=== PATIENT | male | born 1955 | race Caucasian/White ===

== ENCOUNTER 2023-09-03 09:02 | Outpatient (CLI) | payer MEDICARE, SELFPAY ==
--- NOTE | 2023-09-03 09:13 | ECG_ITS ---
APPROVED REPORT Exam: Resting ECG HR:75 bpm ECG Measurements Heart Rate 75 AXES LA 166 P 31 QRSd 102 QRS 11 QT 371 T 66 QTc 399 Conclusion SINUS RHYTHM NORMAL ECG UNCONFIRMED REPORT Electronically signed by : Chris Kebede MD 09/03/2023 20:58:29
[2023-09-03 09:18] LABS: Microscopic, Urine URINE MICROSCOPIC (MICROSCOPIC)
[2023-09-03 09:34] LABS: Basophils # 0.1 K/mm3 (0-0.2); Basophils % 1.1 % (0.1-2.0); Eosinophils # 0.1 K/mm3 (0.0-0.4); Eosinophils % 2.7 % (0.1-12.0); Hematocrit 45.1 % (42.0-52.0); Hemoglobin 14.9 g/dL (14.1-18.0); Lymphocytes # 1.3 K/mm3 (0.7-4.5); Lymphocytes % 29.7 % (10-50); Mean Corpuscular HGB Conc 33.1 g/dL (31.8-35.4); Mean Corpuscular Hemoglobin 33.8 pg (27.0-31.2); Mean Corpuscular Volume 102.1 fl (80-94); Mean Platelet Volume 8.6 fl (7.4-10.4); Monocytes # 0.3 K/mm3 (0.1-1.0); Monocytes % 7.3 % (1.7-9.3); Neutrophils # 2.5 K/mm3 (1.8-7.8); Neutrophils % 59.3 % (37.0-80.0); Platelet Count 204 K/mm3 (142-424); Red Blood Count 4.42 M/mm3 (4.60-6.20); Red Cell Distribution Width 12.3 % (11.5-17.5); White Blood Count 4.2 K/mm3 (4.8-10.8)
[2023-09-03 09:35] LABS: Appearance,Urine CLEAR (Clear); Bilirubin,Urine Negative (Negative); Blood, Urine Negative (Negative); Color,Urine YELLOW (Yellow); Glucose,Urine (UA) Negative (Negative); Ketones,Urine TRACE (Negative); Leukocyte Esterase,Urine Negative (Negative); Nitrate,Urine Negative (Negative); Protein,Urine Negative (Negative); Specific Gravity, Urine 1.015 (1.005-1.030); Urobilinogen,Urine 0.2 EU/dl (0.2)
[2023-09-03 10:15] LABS: Anion Gap 13.5 mEq/L (5-15); Blood Urea Nitrogen 7 mg/dl (9-20); Calcium 9.8 mg/dl (8.4-10.2); Carbon Dioxide 28 mmol/L (22.0-30.0); Chloride 94 mmol/L (98-107); Estimated Glomerular Filt Rate 96 ml/min (>60); GFR (African American) 116 ML/MIN (>60); Glucose 133 mg/dl (74-100); Potassium 4.5 mmoL/L (3.5-5.1); Sodium 131 mmol/L (136-145)
[2023-09-03 10:21] LABS: Bacteria,Urine Trace /lpf; RBC,Urine Occasional #/hpf (0-3); WBC,Urine Occasional #/hpf (0-3)
== END 2023-09-03 23:59 ==
LOC: LAB 09:03
PROVIDERS: PCP Family Medicine; Visit Provider Surgery
DX: K40.90 Unilateral inguinal hernia, without obstruction or gangrene, not specified as recurrent (principal); Z01.818 Encounter for other preprocedural examination
CPT/HCPCS: 36415; 80048; 81001; 85025; 93005

== ENCOUNTER 2023-09-11 06:01 | Day surgery (SDC) | payer MEDICARE, SELFPAY ==
[2023-09-09 17:02] VITALS: BMI 25.0
[2023-09-11] VITALS (10 sets, daily range): BP systolic 130–160; BP diastolic 70–98; PULSE 81–98; RESP 15–18; TEMP 36.6–43; O2SAT 93–100
[2023-09-11] MEDS: LACTATED RINGERS 1000ML 1,000 ML 25 ML IV (06:37)
--- NOTE | 2023-09-11 06:57 | P.PNANES_ITS ---
[facility] Disclaimer: The information contained in this section may have been updated after the patient was seen, as this information can be updated by other users. Medical History Neoplasm of skin of neck Insomnia Hypertension Hemangioma of neck No significant medical problems Surgical History H/O hernia repair Family History Other No significant family history Social History (Updated 09/11/23 @ 06:28 by Janet Barboza RN) Smoking Status: Never smoker alcohol intake: current substance use type: denies use current occupational status: retired Travel in the last 8 weeks: None [facility] Anesthesia Checklist Patient Identification Patient Identification: Arm Band and Family Structural Data Admitted From: Home Planned Operative Procedure/s: Right Inguinal Hernia Repair Consent for Planned Operative Procedure(s) Verified: Yes Verified Documents: Surgical Consent and History and Physical NPO Status Verified Time NPO: 00:00 Additional verifications Patient : No Anesthesia Reactions: No Hx Blood Transfusions: No Blood Transfusion Reaction: No Cephalosporin Allergy: No Previous Colonoscopy: No Airway Assessment Mallampati Score:: Class II C-Spine Mobility Assessed: Yes TMJ Mobility Assessed: Yes Dentition: Good Dentition Neurological Assessment Level of Consciousness: Awake, Alert, Appropriate and Follows Commands Hx Seizures: No Numbness or tingling in extremities: No Anesthesia Plan Anesthesia Risk discussed: Yes ASA Class: II Anesthesia Type: General Preoperative Comments Pre-Operative Comments: Hypertension, on Lisinopril.
[2023-09-11] MEDS: LIDOCAINE 1% 20ML MDV 20 ML (07:39)
[2023-09-11] MEDS: CEFAZOLIN SODIUM 1 GM in 0.9 % SODIUM CHLORIDE 50 ML IV (07:39)
--- NOTE | 2023-09-11 08:58 | P.OP_ITS ---
Date of procedure: 09/11/23 Pre-op Diagnosis:: Recurrent right inguinal hernia Post-op Diagnosis:: Same Procedure performed:: Open repair of recurrent right inguinal hernia Surgeon:: Ever Espino MD METAL [employer]ICATING INSPECTOR:: Juan Pablo Daigle Anesthesia: GETA Estimated blood loss (mL): 15 Clinical Note:: Patient status post prior right inguinal hernia repair approximately 40 years ago without utilization of mesh. After discussion with the patient concerning the risks and benefits of laparoscopic repair and the risks and benefits of open repair, the patient chose to undergo open repair. Operative findings:: Large indirect defect Significant scarring status post prior repair Operative note:: After informed consent was obtained the patient was taken to the operating room and placed in the supine position. General anesthesia was induced and his lower abdomen and groin/scrotum were prepped and draped in a sterile fashion. After infiltration with local anesthetic an oblique incision was made along the right groin (along prior incision). A combination of blunt dissection, sharp dissection, and electrocautery was utilized to transect through Maya's fascia to the level of the external aponeurosis. Profound scarring along the inferior margin noted. The external aponeurosis was opened sharply to the level of the external ring. The contents of the canal were carefully elevated. There was significant scarring/tissue thickening throughout the canal. An indirect defect was noted. The preperitoneal fat within the defect was carefully elevated. The vas and vasculature were carefully and protected. The preperitoneal fat was carefully returned to the abdominal cavity. An extra-large PerFix plug was secured in position with interrupted Ethibond. The PerFix overlay was secured to the fascial margin superiorly and shelving edge/thickened scar tissue inferiorly with interrupted Ethibond. The external aponeurosis was reapproximated with running 2-0 Vicryl. Maya's fascia was closed in the same manner. Skin was then closed with 3-0 Monocryl STRATAFIX. Dressings were applied and the patient was transferred to recovery in stable condition after extubation. Condition: stable Disposition: PACU Specimens:: none Complications:: No immediate
--- NOTE | 2023-09-11 09:05 | P.PNANES_ITS ---
[facility] Anesthesia Record Part I Anesthesia Record I Intake, IV Amount: 1,400 Hydration: Adequate Estimated blood loss (mL): 10 Urine output (mL): 0 Blood Products used (#): none Blood Pressure: 152/98 SaO2: 94 Pulse Rate: 98 Airway Patency: Patent Respiratory Rate: 16 Temperature: 98.5 F Patient is:: Drowsy and Stable Stable to PACU at:: 08:55
[2023-09-11 09:06] LABS: Microscopic,Cath URINE MICROSCOPIC (MICROSCOPIC)
[2023-09-11 09:24] LABS: Appearance,Urine/Cath CLEAR (Clear); Bilirubin,Cath Negative (Negative); Blood, Urine/Cath Negative (Negative); Color,Urine/Cath YELLOW (Yellow); Glucose,Urine/Cath (UA) Negative (Negative); Ketones,Urine/Cath TRACE (Negative); Leukocyte Esterase,Cath Negative (Negative); Nitrate,Cath Negative (Negative); Protein,Urine/Cath Negative (Negative); Urobilinogen,Cath 0.2 EU/dl (0.2)
--- NOTE | 2023-09-11 10:00 | EXP.ANES.II ---
[facility] Anesthesia Record Part II Anesthesia Record Part II Discharge Time: 09:25 Destination: Surgical Day Care (OP Surgery) PACU nurse assessment reviewed?: Yes Patient Condition:: Good Anesthesia Complications:: None Swallowing reflex intact?: Yes Airway Patency: Patent Cyanosis?: No Blood Pressure: 133/73 SaO2: 95 Respiratory Rate: 15 Pulse Rate: 88 Temperature: 98 F Mental Status: Alert & Oriented Pain level:: 0 Nausea and/or vomitting:: None Intake, IV Amount: 0 Hydration: Adequate
[2023-09-11 11:05] LABS: Bacteria,Urine/Cath TRACE /lpf; Squamous Epithelial Ur./Cath Occasional #/hpf (0-5); WBC,Urine/Cath Occasional #/hpf (0-3)
== END 2023-09-11 09:56 | disposition home or self-care (01) ==
PROVIDERS: PCP Family Medicine; Visit Provider Surgery
PROC: (CPT 49520; principal; 2023-09-11 07:30)
DX: K40.91 Unilateral inguinal hernia, without obstruction or gangrene, recurrent (principal)
CPT/HCPCS: 49520; 81001; 96374; J3490

== ENCOUNTER 2024-03-30 10:45 | Outpatient (CLI) | payer MEDICARE, SELFPAY ==
[2024-03-30 19:24] LABS: Anion Gap 8.6 mEq/L (5-15); Blood Urea Nitrogen 5 mg/dl (9-20); Calcium 9.5 mg/dl (8.4-10.2); Carbon Dioxide 28 mmol/L (22.0-30.0); Chloride 97 mmol/L (98-107); Estimated Glomerular Filt Rate 112 ml/min (>60); GFR (African American) 135 ML/MIN (>60); Glucose 155 mg/dl (74-100); Potassium 4.6 mmoL/L (3.5-5.1); Sodium 129 mmol/L (136-145)
[2024-03-30 19:56] LABS: Prostate Specific Ag Screen 1.9 ng/ml (0.0-4.0)
== END 2024-03-30 23:59 | disposition home or self-care (01) ==
LOC: LAB.DROPOF 03-31 09:53
PROVIDERS: PCP Family Medicine; Visit Provider Family Medicine
DX: R73.9 Hyperglycemia, unspecified (principal); N40.0 Benign prostatic hyperplasia without lower urinary tract symptoms; I10 Essential (primary) hypertension
CPT/HCPCS: 80048; G0103

== ENCOUNTER 2024-06-28 16:31 | Emergency (ER) | payer MEDICARE, SELFPAY ==
[2024-06-28 16:40] VITALS: BP 177/86; PULSE 73; O2SAT 100
[2024-06-28 16:43] VITALS: BP 177/86; PULSE 74; RESP 18; TEMP 36.8; O2SAT 100; BMI 26.6
[2024-06-28 16:45] VITALS: BP 143/81; PULSE 73; O2SAT 97
[2024-06-28 17:00] VITALS: BP 142/81; PULSE 77; O2SAT 100
--- NOTE | 2024-06-28 17:02 | XR_ITS ---
PROCEDURE INFORMATION: Exam: XR Right Humerus Exam date and time: 06/28/2024 5:30 PM Age: 69 years old Clinical indication: Injury or trauma; Fall; Blunt trauma (contusions or hematomas); Arm, upper; Right; Additional info: Fall, concern for prox FX TECHNIQUE: Imaging protocol: Radiologic exam of the right humerus. Views: 2 or more views. COMPARISON: CR XR SHOULDER RT MIN 2V 06/28/2024 5:30 PM FINDINGS: Bones/joints: Subtle irregularity of the proximal humerus at the level of the surgical neck. Findings suspicious for nondisplaced fracture. Soft tissues: Normal. IMPRESSION: 1. Subtle irregularity of the proximal humerus at the level of the surgical neck. Findings suspicious for nondisplaced fracture. 2. Consider follow-up with computerized tomography.
--- NOTE | 2024-06-28 17:02 | XR_ITS ---
PROCEDURE INFORMATION: Exam: XR Right Shoulder Exam date and time: 06/28/2024 5:30 PM Age: 69 years old Clinical indication: Injury or trauma; Fall; Blunt trauma (contusions or hematomas); Shoulder; Right; Additional info: Fall, concern for prox FX TECHNIQUE: Imaging protocol: Radiologic exam of the right shoulder. Views: 2 or more views. COMPARISON: CR XR SHOULDER RT MIN 2V 06/28/2024 5:30 PM FINDINGS: Bones/joints: Osteopenia. Subtle cortical irregularity in the region of the humeral neck. Findings suspicious for nondisplaced fracture. Soft tissues: Normal. IMPRESSION: Subtle cortical irregularity in the region of the humeral neck. Findings suspicious for nondisplaced fracture.
--- NOTE | 2024-06-28 17:02 | CT_ITS ---
PROCEDURE INFORMATION: Exam: CT Head Without Contrast Exam date and time: 06/28/2024 5:38 PM Age: 69 years old Clinical indication: Injury or trauma; Fall; Blunt trauma (contusions or hematomas); Additional info: Fall struck head, concern for humerus FX TECHNIQUE: Imaging protocol: Computed tomography of the head without contrast. Radiation optimization: All CT scans at this facility use at least one of these dose optimization techniques: automated exposure control; mA and/or kV adjustment per patient size (includes targeted exams where dose is matched to clinical indication); or iterative reconstruction. COMPARISON: CT HEAD/BRAIN WO CON 06/28/2024 5:38 PM FINDINGS: Brain: The brain parenchyma appears unremarkable, with no signs of acute intracranial hemorrhage or significant mass effect. There is hypodensity in the subcortical and periventricular white matter which is technically nonspecific but most often related to chronic microvascular disease. Cerebral ventricles: Mild ventricular enlargement consistent with age-related cerebral atrophy is noted. Paranasal sinuses: Paranasal sinuses show age-appropriate mucosal thickening. Mastoid air cells: Visualized mastoid air cells are well aerated. Bones: There are no skull fractures or bony lesions. Soft tissues: Unremarkable. IMPRESSION: Presumably age-related and chronic changes without acute intracranial abnormality.
--- NOTE | 2024-06-28 17:02 | CT_ITS ---
PROCEDURE INFORMATION: Exam: CT Cervical Spine Without Contrast Exam date and time: 06/28/2024 5:41 PM Age: 69 years old Clinical indication: Injury or trauma; Fall; Blunt trauma; Additional info: Fall struck head, concern for humerus FX TECHNIQUE: Imaging protocol: Computed tomography of the cervical spine without contrast. Radiation optimization: All CT scans at this facility use at least one of these dose optimization techniques: automated exposure control; mA and/or kV adjustment per patient size (includes targeted exams where dose is matched to clinical indication); or iterative reconstruction. COMPARISON: 1. CT HEAD/BRAIN WO CON 06/28/2024 5:38 PM 2. CR XR HUMERUS RT 06/28/2024 5:30 PM FINDINGS: Bones: There is diffuse osseous demineralization. There is straightening of the normal spinal curvature. 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 The cervical spine shows relatively preserved alignment of the vertebral bodies with no evidence of acute fractures or dislocations. However, age-related degenerative changes are observed, including mild disc space narrowing and osteophyte formation at multiple levels. These findings are consistent with age related degenerative disease. Teeth: There is dental amalgam which causes streak artifact and mildly limits evaluation of the oral cavity. Lungs: Lung apices are normal. Vasculature: There are atherosclerotic calcifications of the carotid bulbs bilaterally. Soft tissues: See Bones finding. IMPRESSION: Multilevel degenerative change without acute injury identified.
--- NOTE | 2024-06-28 17:02 | CT_ITS ---
PROCEDURE INFORMATION: Exam: CT Chest Without Contrast; Diagnostic Exam date and time: 06/28/2024 5:44 PM Age: 69 years old Clinical indication: Injury or trauma; Fall; Blunt trauma (contusions or hematomas); Additional info: Fall, posterior R shoulder pain TECHNIQUE: Imaging protocol: Diagnostic computed tomography of the chest without contrast. Radiation optimization: All CT scans at this facility use at least one of these dose optimization techniques: automated exposure control; mA and/or kV adjustment per patient size (includes targeted exams where dose is matched to clinical indication); or iterative reconstruction. COMPARISON: CT CHEST WO CON 06/28/2024 5:44 PM FINDINGS: Lungs: Unremarkable. No consolidation. No masses. Pleural spaces: 4 mm pleural based nodule anteriorly right upper lobe. Heart: Unremarkable. No cardiomegaly. No pericardial effusion. Coronary arteries: Coronary artery stents Lymph nodes: Unremarkable. No enlarged lymph nodes. Vasculature: Unremarkable. No aortic aneurysm. Diaphragm: Small hiatal hernia Bones/joints: Acute nondisplaced nonsegmental fractures right posterolateral 4th , 6, 7th and 8th ribs. Previously described right humeral head fracture incompletely visualized. Soft tissues: Unremarkable. Other findings: Findings demonstrated on (series 4, image number 39) IMPRESSION: 1. Acute nondisplaced nonsegmental fractures right posterolateral 4th , 6, 7th and 8th ribs. 2. Previously described right humeral head fracture incompletely visualized. 3. 4 mm pleural based nodule anteriorly right upper lobe. Recommend follow-up CT Chest in 6-12 months. (References: Petey and Sathish) REFERENCES: 1. Toneyhobenedicto H, et al. Guidelines for Management of Incidental Pulmonary Nodules Detected on CT Images: From the Fleischner Society 2017. Radiology. 2017;284(1):228-243. 2. Sathish An, et al. Updated Fleischner Society Guidelines for Managing Incidental Pulmonary Nodules: Common Questions and Challenging Scenarios. Radiographics. 2018;38(5):8142-8140.
[2024-06-28] MEDS: HYDROMORPHONE 2MG/ML SYRINGE 0.5 MG IV ×2 (17:13→17:29)
[2024-06-28] MEDS: KETOROLAC 30MG/ML VIAL 15 MG IV (17:13)
[2024-06-28] MEDS: ONDANSETRON 4MG/2ML VIAL 4 MG IV ×2 (17:13→17:29)
--- NOTE | 2024-06-28 17:32 | PC.NURSE ---
XR AT BEDSIDE
--- NOTE | 2024-06-28 17:37 | CT_ITS ---
PROCEDURE INFORMATION: Exam: CT Right Upper Extremity Without Contrast, Shoulder Exam date and time: 06/28/2024 5:47 PM Age: 69 years old Clinical indication: Injury or trauma; Fall; Blunt trauma (contusions or hematomas); Arm, upper; Right; Additional info: Concern for surgical neck vs intraartic FX TECHNIQUE: Imaging protocol: Computed tomography of the right upper extremity without contrast. Exam focused on the shoulder. Radiation optimization: All CT scans at this facility use at least one of these dose optimization techniques: automated exposure control; mA and/or kV adjustment per patient size (includes targeted exams where dose is matched to clinical indication); or iterative reconstruction. COMPARISON: CR XR SHOULDER RT MIN 2V 06/28/2024 5:30 PM FINDINGS: Bones/joints: Minimally displaced fracture of the proximal humerus at the level of the surgical neck. Soft tissues: Normal. Other findings: Findings best demonstrated on series 1001 image number [id number], series 3 image number [id number]. IMPRESSION: Minimally displaced fracture of the proximal humerus at the level of the surgical neck.
--- NOTE | 2024-06-28 17:55 | ED_ITS ---
Discharge Plan Disposition Patient Disposition: Home, Self-Care Prescriptions Prescriptions: New methocarbamol 750 mg tablet 1,500 mg PO Q8H PRN (Reason: muscle spasm) Qty: 90 0RF hydrocodone-acetaminophen 5-325 mg tablet 1 tab PO Q6H PRN (Reason: pain) Qty: 14 0RF lidocaine 5 % adhesive patch,medicated 1 patch topical DAILY Qty: 30 0RF Rx Instructions: leave on most painful area for up to 12 hrs No Action lisinopril 10 mg tablet 10 mg PO DAILY Qty: 90 0RF potassium chloride 10 mEq tablet extended release 10 meq PO DAILY Qty: 30 4RF baclofen 10 mg tablet 10 mg PO DAILY PRN (Reason: muscle spasm) Qty: 30 0RF temazepam 15 mg capsule 15 mg PO HS PRN (Reason: sleep) Qty: 30 0RF Referrals Follow up/Referrals: Bhanu Mcmullen DO [Staff Physician] - See instructions Dio DE LA GARZA MD [Primary Care Provider] - See instructions Activity Restrictions/Add. Instructions Additional Instructions/Restrictions: Call your family doctor to establish care for this visit to the emergency department and schedule follow-up within 48 hours to ensure improvement. If you have any worsening of your condition or any other concerning signs or symptoms, return to the emergency department or your primary care doctor for further evaluation. Lidocaine patches every 12 hours to help with pain over point of maximal tenderness on the chest wall. Robaxin and [place] as needed for severe pain. Take Tylenol 1000 mg every 6 hours (4 times daily) and ibuprofen 400 mg every 6 hours (4 times daily) as needed with food and water to prevent GI upset and kidney damage. Use incentive spirometry multiple times a day to make sure you are taking deep breaths. Return if you are having any worsening symptoms. Call Dr. Mcmullen's office to schedule follow-up for your shoulder. Splint at all times except while sleeping Clinical Impressions Clinical Impression: Multiple fractures of ribs of right side, Closed right humeral fracture Instructions Patient Instructions: DI for Rib Fracture, DI for Shoulder Fracture Print Language Print Language: Maltese Discharge ED Provider: Sergio Johnson General Adult HPI General Chief complaint: Extremity Injury, Upper Stated complaint: AO fall 06/28 1530 right shoulder pain neck stiff Time Seen by Provider: 06/28/24 16:33 Mode of Arrival: Wheelchair Source of Information: Patient Limitations: No Limitations Description of Symptoms (Recalled from ER Triage Doc. by RN): pt reports falling after slipping on water from his boots. pt c/o R shoulder pain that radiates distally. pt states his pain is sharp i nature and 10/10. pt has a scrape to the back of his head. pt denies CLIFFORD or head injury. pt denies LOC. pt is not on a blood thinner History of Present Illness HPI narrative: Please note that above description of symptoms, in this electronic medical record under categorization of recalled from ER triage doctor by RN are reflective of an initial nursing assessment, however, is not reflective of my full history and physical exam that was personally taken and clarified. Consequentially, this preceding description of symptoms, which may include the patient's categorized chief complaint in the EMR, do not reflect my personal clinical impression, and the ultimate description of history of present illness and patient stated complaints should be deferred to this section of the note. Unless stated otherwise or congruent with this section of the note, additional signs, symptoms, or incongruence should be interpreted as inaccurate with my clinical impression. Related Data Previous Rx's ?Medication ?Instructions ?Recorded lisinopril 10 mg tablet 10 mg PO DAILY hypertension #90 03/30/24 tabs potassium chloride 10 mEq 10 meq PO DAILY #30 tabs 04/06/24 tablet,extended release baclofen 10 mg tablet 10 mg PO DAILY PRN muscle spasm 04/26/24 #30 tabs temazepam 15 mg capsule 15 mg PO HS PRN sleep #30 caps 06/02/24 hydrocodone 5 mg-acetaminophen 325 1 tab PO Q6H PRN pain #14 tabs 06/28/24 mg tablet lidocaine 5 % topical patch 1 patch topical DAILY #30 ea 06/28/24 methocarbamol 750 mg tablet 1,500 mg (2 x 750 mg) PO Q8H PRN 06/28/24 muscle spasm #90 tabs Allergies Allergy/AdvReac Type Severity Reaction Status Date / Time No Known Allergies Allergy Verified 03/30/24 09:47 [facility] Disclaimer: The information contained in this section may have been updated after the patient was seen, as this information can be updated by other users. Medical History (Updated 06/28/24 @ 19:03 by Sergio Johnson MD) Hyperglycemia Neoplasm of skin of neck Insomnia Hypertension Hemangioma of neck No significant medical problems Surgical History (Updated 03/30/24 @ 10:22 by Dio DE LA GARZA MD) H/O hernia repair Family History Other No significant family history Social History Smoking Status: Never smoker alcohol intake: current substance use type: denies use current occupational status: retired Travel in the last 8 weeks: None Have you lived/traveled outside [place] in past 30 days?: No Contact w/someone who lives/traveled outside [place] past 30 days?: No Exposure to someone with infectious disease in past 14 days?: No Do you have a fever (greater than 100.4 F or 38 C)?: No Have you tested positive for COVID-19: No Exposed to someone with COVID-19 in past 14 days?: No Do you have a sore throat?: No Do you have a cough?: No Do you have any weakness?: No Do you have any diarrhea?: No Are you experiencing any unusual bleeding?: No Do you have any muscle aches/pain?: No Do you have any abdominal pain?: No Are you experiencing loss of taste or smell?: No Other Medical History Have you received the Pneumonia Vaccine: Yes ROS Obtained: Yes All systems reviewed & no additional complaints except as documented Physical Exam General General appearance: alert Head Head exam: atraumatic and normocephalic Eye Eye exam: Present normal appearance, PERRL and EOMI Neck Neck exam: Present normal inspection, full ROM and trachea midline; Absent tenderness Chest Chest inspection: Present tenderness Respiratory Respiratory exam: Absent respiratory distress, wheezes, stridor, accessory muscle use or prolonged expiratory phase Cardiovascular Cardiovascular exam: Present other (Pulses equal symmetric in upper and lower extremities) Abdominal Exam Abdominal exam: Present soft; Absent distention, tenderness or pulsatile mass Extremities Exam Extremities exam: Present other (Significant tenderness with muscle spasms anterior and posteriorly right shoulder. Obvious deformity. Neurovascularly intact right upper extremity.); Absent edema Neurological Exam Neurological exam: Present alert, oriented X3 and CN II-XII intact; Absent motor sensory deficit Skin Skin exam: Present warm and dry; Absent diaphoresis or erythema Medical Decision Making Medical Records Medical records reviewed: Yes I reviewed the patient's medical records. Screening: Per USPSTF and CDC recommendations, given the prevalence of disease in our region, it is our hospital?s policy to screen for HIV and viral Hepatitis for all patients aged 18 and over and those with ongoing risk factors. Patrice Inquiry Pt receiving controlled substance: No Patrice was queried for this patient: No Vital Signs: 06/28/24 16:40 06/28/24 16:43 06/28/24 16:45 Temperature 98.3 F Temperature Source Oral Pulse Rate 73 73 Pulse Rate [Left] 74 Respiratory Rate 18 Blood Pressure 177/86 H 143/81 H Blood Pressure [Right Arm] 177/86 H Blood Pressure Mean Blood Pressure Mean [Right Arm] 116 Blood Pressure Source Blood Pressure Source [Right Arm] Automatic Cuff Blood Pressure Position [Right Arm] Sitting 02 Sat by Pulse Oximetry 100 100 97 Oxygen Delivery Method Room Air Room Air Room Air 06/28/24 17:00 06/28/24 18:52 Temperature 98.3 F Temperature Source Oral Pulse Rate 77 70 Pulse Rate [Left] Respiratory Rate 16 Blood Pressure 142/81 H 140/80 Blood Pressure [Right Arm] Blood Pressure Mean 101 Blood Pressure Mean [Right Arm] Blood Pressure Source Automatic Cuff Blood Pressure Source [Right Arm] Blood Pressure Position [Right Arm] 02 Sat by Pulse Oximetry 100 Oxygen Delivery Method Room Air Room Air Orders (Tests/Meds): ED MEDICATIONS Discontinued Medications Generic Name Dose Route Start Last Admin Trade Name Phill PRN Reason Stop Dose Admin Hydrocodone Bitart/Acetaminophen 1 tab 06/28/24 18:26 06/28/24 18:38 Hydrocodone/Apap 5/325 Mg Tablet PO 06/28/24 18:27 1 tab ONCE ONE Administration Hydromorphone HCl 0.5 mg 06/28/24 16:57 06/28/24 17:13 Hydromorphone 2mg/Ml Syringe IV 06/28/24 16:58 0.5 mg ONCE ONE Administration Hydromorphone HCl 0.5 mg 06/28/24 17:27 06/28/24 17:29 Hydromorphone 2mg/Ml Syringe IV 06/28/24 17:28 0.5 mg ONCE ONE Administration Ketorolac Tromethamine 15 mg 06/28/24 16:57 06/28/24 17:13 Ketorolac 30mg/Ml Vial IV 06/28/24 16:58 15 mg ONCE ONE Administration Lidocaine 1 each 06/28/24 18:26 06/28/24 18:38 Lidocaine 5% Transdermal Patch TP 06/28/24 18:27 1 each ONCE ONE Administration Methocarbamol 1,500 mg 06/28/24 18:26 06/28/24 18:38 Methocarbamol 500mg Tablet PO 06/28/24 18:27 1,500 mg ONCE ONE Administration Ondansetron HCl 4 mg 06/28/24 16:57 06/28/24 17:13 Ondansetron 4mg/2ml Vial IV 06/28/24 16:58 4 mg ONCE ONE Administration Ondansetron HCl 4 mg 06/28/24 17:25 06/28/24 17:29 Ondansetron 4mg/2ml Vial IV 06/28/24 17:26 4 mg ONCE ONE Administration ORDERS Category Date Time Status CT cervical spine wo con Stat Cat Scan 06/28/24 17:[address] chest wo con Stat Cat Scan 06/28/24 17:[address] head/brain wo con Stat Cat Scan 06/28/24 17:[address] shoulder RT wo con Stat Cat Scan 06/28/24 17:37 Completed Humerus XR right [XR humerus RT] Stat Exams 06/28/24 17:02 Completed XR shoulder RT min 2V Stat Exams 06/28/24 17:02 Completed Medical Decision Narrative: 69-year-old male no relevant medical history presenting with right upper extremity injury and tenderness after fall. Patient states that he slipped on a wet floor when he got in from the snow. States he is having significant 10 out of 10 tenderness in his right shoulder and right axilla. Has not taken anything for the pain. No shortness of breath, nausea, vomiting, headache, neck pain, neurologic deficits, weakness, numbness, or tingling. Patient not on anticoagulation. History was obtained via conversation with patient. On arrival, patient hemodynamically stable, alert, oriented x4, appropriate, GCS 15, moving all extremities spontaneously, pupils equal and reactive to light. Full physical exam performed and significant for uncomfortable appearing male in mild distress secondary to pain. Has muscle spasms anteriorly and posteriorly involving his pectoralis muscles as well as his rotator cuff muscles. Neurovascular intact right upper extremity. Limited range of motion of the shoulder in general. Not 1 motion seems to make it more tender than another. Sensation is intact. He does appear to have some chest wall tenderness under his axilla as well, but no outward signs of bruising, deformity. Bilateral breath sounds present. Differential includes fracture, sprain, strain, dislocation, pneumothorax, rib fractures, neurologic injury, vascular injury, intracranial hemorrhage, cervical spine injury, among others. Patient placed on continuous cardiac monitoring and continuous pulse ox with initial blood pressure 177/86, heart rate 73, saturation 100% on room air. Patient in mild to moderate distress secondary to pain. Prior to imaging being obtained, patient was given 0.5 mg Dilaudid and 4 mg Zofran. Patient becoming nauseated, pain is still 8 out of 10, given another dose of each shortly thereafter. Patient states his pain is much more tolerable and imaging was obtained. On independent interpretation of CT head, no intracranial hemorrhage. No acute traumatic abnormality of the cervical spine. On the CT of the chest, patient appears to have 3-4 rib fractures on the right with no displacement, but underlying small chest wall hematoma. No evidence of pulmonary contusion or pneumothorax. X-ray of the shoulder was obtained, as well as a humerus. Patient has impacted humeral head fracture. CT of the shoulder was ordered given concern for intra-articular injury. On independent interpretation of this, patient has comminuted fracture of the humeral head with no obvious intra- articular involvement. Sling placed for support. On repeat evaluation, patient states he is feeling much better. Incentive spirometry able to pull 1500 to 2000 mL. Lidocaine patch was placed, patient received 1500 mg Robaxin and first dose of [place] here. Patient feels comfortable going home. Patient's son is in the room as well. Seriousness and acuity of multiple rib fractures in someone over the age of 65 was discussed. The patient chose discharge home with conservative care as opposed to transferred to [facility] has recommended after a thorough discussion of the risks of doing so, including a discussion of potential alternative plans. These risks include but are not limited to clinical decompensation, terminal carman disability and . The patient appears capable of making this decision. I have advised the patient to immediately return if there are any further problems or if they change their mind about seeking further care. Regarding social determinants of health, patient's son in the room and corroborates this. Patient has family support in his neighborhood, but does not have anyone living at home with him. States that he will reach out and return if he gets any worse. I feel he is appropriate for home-going. Because patient at baseline without signs or symptoms of clinical decompensation, deemed appropriate for discharge. Results were relayed to patient who voiced understanding and were agreeable to outpatient management and follow up. I discussed my clinical impression with patient and answered all questions. At this time, the evidence for any other entities in the differential is insufficient to warrant any further testing or ED observation. This was explained as well. Advisory was given that persistent or worsening symptoms require further evaluation. I confirmed the understanding of this discussion. I also contacted patient's primary care provider to discuss this to make sure he has close follow-up, states that he can see him in clinic tomorrow, 06/29. Client Relationship Manager disclaimer Much of this encounter note is an electronic souvenir street vendor spoken language to printed text. Electronic souvenir street vendor of the spoken language may permit errors. Although I have reviewed the note, some errors may still exist. Critical Care Critical Care Time Critical Care Time: No
[2024-06-28] MEDS: LIDOCAINE 5% TRANSDERMAL PATCH 1 EACH TP (18:38)
[2024-06-28] MEDS: HYDROCODONE/APAP 5/325 MG TABLET 1 TAB PO (18:38)
[2024-06-28] MEDS: METHOCARBAMOL 500MG TABLET 1500 MG PO (18:38)
[2024-06-28 18:52] VITALS: BP 140/80; PULSE 70; RESP 16; TEMP 36.8; O2SAT 98
== END 2024-06-28 19:09 | disposition home or self-care (01) ==
PROVIDERS: Emergency Provider Emergency Medicine; PCP Family Medicine
DX: S42.301A Unspecified fracture of shaft of humerus, right arm, initial encounter for closed fracture (principal); S22.41XA Multiple fractures of ribs, right side, initial encounter for closed fracture; M25.511 Pain in right shoulder; W01.0XXA Fall on same level from slipping, tripping and stumbling without subsequent striking against object, initial encounter; Y93.9 Activity, unspecified; Y92.9 Unspecified place or not applicable
CPT/HCPCS: 70450; 71250; 72125; 73030; 73060; 73200; 96374; 96375; 99284; J1171; J1885; J2405

== ENCOUNTER 2024-07-13 12:22 | Outpatient (CLI) | payer MEDICARE, SELFPAY ==
--- NOTE | 2024-07-13 12:26 | XR_ITS ---
FINAL REPORT CLINICAL HISTORY: Rt Shoulder Pain COMPARISON: None FINDINGS: RIGHT SHOULDER 2 views demonstrate no acute fracture or dislocation. The visualized joint spaces are normally aligned. There are mild hypertrophic changes of the margin of the humeral head. The soft tissues are unremarkable. IMPRESSION: Mild hypertrophic changes of the margin of the humeral head. No acute bony abnormality identified. Reviewed, Interpreted and Dictated by Rommel Gay MD Transcribed by Serena Norris Authenticated and [facility]
== END 2024-07-13 23:59 | disposition home or self-care (01) ==
LOC: RAD 12:24
PROVIDERS: PCP Psychiatry & Neurology Sleep Medicine; Visit Provider Orthopaedic Surgery
DX: M25.511 Pain in right shoulder (principal)
CPT/HCPCS: 73030

== ENCOUNTER 2024-08-10 11:39 | Outpatient (CLI) | payer MEDICARE, SELFPAY ==
--- NOTE | 2024-08-10 11:45 | XR_ITS ---
FINAL REPORT CLINICAL HISTORY: right shoulder pain COMPARISON: 07/13/2024 FINDINGS: 2 views of the right shoulder were obtained. Again seen is a fracture of the humeral neck. There is no dislocation. There is increasing sclerosis consistent with healing. Degenerative joint disease is unchanged. Soft tissues are unremarkable. IMPRESSION: Healing humeral neck fracture. Reviewed, Interpreted and Dictated by Carmina Isaacs MD Transcribed by Yary Hamilton Authenticated and [facility]
== END 2024-08-10 23:59 | disposition home or self-care (01) ==
LOC: RAD 11:40
PROVIDERS: PCP Family Medicine; Visit Provider Orthopaedic Surgery
DX: M25.511 Pain in right shoulder (principal)
CPT/HCPCS: 73030

== ENCOUNTER 2025-03-29 12:27 | Outpatient (CLI) | payer MEDICARE, SELFPAY ==
[2025-03-29 17:27] LABS: Alanine Aminotransferase 15 U/L (12-78); Albumin Level 4.8 g/dl (3.5-5.0); Albumin/Globulin Ratio 2.0 (1.1-1.8); Alkaline Phosphatase 78 U/L (38-126); Anion Gap 17.8 mEq/L (5-15); Aspartate Amino Transferase 22 U/L (17-59); Bilirubin,Total 0.8 mg/dl (0.2-1.3); Blood Urea Nitrogen 5 mg/dl (9-20); Calcium 9.6 mg/dl (8.4-10.2); Carbon Dioxide 25 mmol/L (22.0-30.0); Chloride 92 mmol/L (98-107); Creatinine,Serum 0.60 mg/dl (0.66-1.25); Estimated Glomerular Filt Rate 133 ml/min (>60); GFR (African American) 161 ML/MIN (>60); Globulin 2.4 g/dL (1.3-3.2); Glucose 94 mg/dl (74-100); Potassium 4.8 mmoL/L (3.5-5.1); Sodium 130 mmol/L (136-145); Total Protein,Serum 7.2 g/dl (6.3-8.2)
[2025-03-29 18:17] LABS: Hepatitis C Ab Qual. W/ RFX NEGATIVE (Negative)
== END 2025-03-29 23:59 ==
LOC: LAB.DROPOF 03-31 12:28
PROVIDERS: PCP Family Medicine; Visit Provider Family Medicine
DX: I10 Essential (primary) hypertension (principal); Z11.59 Encounter for screening for other viral diseases; N40.0 Benign prostatic hyperplasia without lower urinary tract symptoms
CPT/HCPCS: 80053; 86803; 87389; G0103